=== PATIENT | female | born 1950 | race Caucasian/White ===

== ENCOUNTER → 2019-10-18 12:00 | Outpatient (BNVA) | payer MEDICARE, OTHER, SELFPAY | PROVIDERS: Family Provider Nurse Practitioner; PCP Nurse Practitioner; Visit Provider Nurse Practitioner Family | DX: M79.641 Pain in right hand (principal) | CPT/HCPCS: 73130 ==

== ENCOUNTER 2019-12-13 10:53 | Outpatient (CLI) | payer MEDICARE, OTHER, SELFPAY ==
--- NOTE | 2019-12-13 11:06 | CT_ITS ---
WS: [id number] CT CHEST WITHOUT INTRAVENOUS CONTRAST HISTORY: POSSIBLE THYMOMA, mediastinal MASS TECHNIQUE: Contiguous 5 mm axial imaging performed on the thorax. Coronal and sagittal reformats are submitted. All CT scans at [facility] use at least one of these dose optimization techniq ues: automated exposure control; mA and/or kV adjustment per patient size (includes targeted exams wh ere dose is matched to clinical indication); or iterative reconstruction. CONTRAST: None DLP: 907.85 mGycm COMPARISON: 03/02/2010 Lungs and central airway: Mild pulmonary hyperexpansion. No suspicious masses or nodules. Long-term s tability 6 mm linear scar at the LEFT lung base. Additional linear atelectasis or scar at the lingula . No new mass or nodule. Pleura: Normal. No pleural effusion. Heart and pericardium: Normal size heart. No pericardial effusion. Mediastinum and elvira: Ovoid 12 mm soft tissue mass in the anterior mediastinal fat measures 12 mm. Th is was also present on the prior study from 2009 without increase in size. No additional mediastinal masses. No evidence for thymoma. No adenopathy. Vessels: Mild atherosclerosis aorta. Normal size pulmonary artery. Chest wall and lower neck: Bilateral breast masses and nodules. Several of these nodules were present on the prior study from 2009. No recent mammogram has been performed at [facility] [place]. Upper abdomen: Atherosclerosis aorta. No hilar mass. Osseous structures: Mild increase in thoracic kyphosis. Dorsal column stimulator in the midthoracic r egion. CT/CT chest wo con [id number] IMPRESSION: 1. Long-term stability of a 12 mm lymph node in the anterior mediastinal fat. 2. No fibroma. 3. Bilateral breast masses and nodules. No prior recent mammograms are availab le for review. Recommend diagnostic mammography for further evaluation if this has not been performed elsewhere. 4. Mild emphysema.
== END 2019-12-13 10:54 | disposition home or self-care (01) ==
LOC: RADWPI 11:02
PROVIDERS: Family Provider Family Medicine; PCP Family Medicine; Visit Provider Family Medicine
DX: J98.59 Other diseases of mediastinum, not elsewhere classified (principal); N63.20 Unspecified lump in the left breast, unspecified quadrant; N63.10 Unspecified lump in the right breast, unspecified quadrant; J43.9 Emphysema, unspecified
CPT/HCPCS: 71250

== ENCOUNTER → 2020-01-13 09:54 | Outpatient (BNVA) | payer MEDICARE, OTHER, SELFPAY | PROVIDERS: Family Provider Family Medicine; PCP Family Medicine; Visit Provider Licensed Practical Nurse | DX: Z98.1 Arthrodesis status (principal) | CPT/HCPCS: 99214 ==

== ENCOUNTER 2020-01-21 09:47 | Outpatient (CLI) | payer MEDICARE, OTHER, SELFPAY ==
--- NOTE | 2020-01-21 10:15 | CT_ITS ---
WS: [id number] CT LUMBAR SPINE TECHNIQUE: Noncontrast CT of the lumbar spine with coronal and sagittal reformatted images. CLINICAL INFORMATION: Low back pain COMPARISON: CT 3 13,019 and MRI 3 30,018 DLP: 1925.[address] scans at [facility] use at least one of these dose optimization techniques: automat ed exposure control; mA and/or kV adjustment per patient size (includes targeted exams where dose is matched to clinical indication); or iterative reconstruction. FINDINGS: Mild lumbar curve convex right. Vacuum disc phenomenon. Disc space narrowing L1-L5. Grade 1 anterolis thesis measuring 8 mm unchanged. Screw fixation L4-5 with interconnecting rods. No hardware loosening . Dorsal laminectomy defects with dorsolateral bony fusion. L1-L2: Mild disc bulging with slight effacement of ventral thecal sac. Narrowing subarticular recess. Mild right greater than left foraminal narrowing. Moderate facet arthropathy. L2-L3: Mild disc bulging and osteophytic ridging. Mild central canal stenosis. Mild left and no signi ficant right foraminal narrowing. Moderate facet arthropathy. L3-L4: Slight anterolisthesis L3 on L4. Left subarticular protrusion impingement on the traversing le ft L4 nerve root. Mild central canal stenosis. Moderate left and mild right foraminal narrowing. Mode rate facet arthropathy. L4-L5: Grade 1 anterolisthesis L4 on L5. Moderate facet arthropathy. Mild right greater than left for aminal narrowing. L5-S1: Disc osteophyte complex with endplate ridging. Tiny central osteophyte. Mild right foraminal n arrowing. Slight narrowing of the left subarticular recess. Mild facet arthropathy. Visualized pelvic bony structures: Normal. Paravertebral soft tissues: Normal. CT/CT lumbar spine wo con* [id number] IMPRESSION: 1. Mild lumbar curve. No acute compression. 2. Pedicle screw fixation L4-5 with dorsal laminectomy defects and dorsal late ral bony fusion unchanged. Stable 8 mm anterolisthesis L4 on L5. 3. Mild central canal stenosis L2-3 due to disc bulging with facet arthropathy and ligamentum flavum flavum hypertrophy. 4. Mild central canal stenosis L3-4 with a left subarticular protrusion and im pingement traversing left L4 nerve root. 5. Multilevel mild to moderate foraminal narrowing worse at left L2-3, left L3 -4, and right L4-5. 6. Moderate facet arthropathy L3-L5. 7. Disc space narrowing at L4-5 has progressed slightly since 2019. Otherwise no significant interval changes.
== END 2020-01-21 09:48 | disposition home or self-care (01) ==
LOC: RADWPI 09:53
PROVIDERS: Family Provider Family Medicine; PCP Family Medicine; Visit Provider Licensed Practical Nurse
DX: Z98.1 Arthrodesis status (principal); M48.061 Spinal stenosis, lumbar region without neurogenic claudication; M47.816 Spondylosis without myelopathy or radiculopathy, lumbar region; M51.26 Other intervertebral disc displacement, lumbar region
CPT/HCPCS: 72131

== ENCOUNTER → 2020-01-25 14:50 | Outpatient (BNVA) | payer MEDICARE, OTHER, SELFPAY | PROVIDERS: Family Provider Family Medicine; PCP Family Medicine; Visit Provider Licensed Practical Nurse | DX: Z98.1 Arthrodesis status (principal); Z98.890 Other specified postprocedural states | CPT/HCPCS: 99214 ==

== ENCOUNTER → 2020-02-04 14:37 | Outpatient (BNVA) | payer MEDICARE, OTHER, SELFPAY | PROVIDERS: Family Provider Family Medicine; PCP Family Medicine Adult Medicine; Visit Provider Specialist | DX: M54.17 Radiculopathy, lumbosacral region (principal); G62.9 Polyneuropathy, unspecified; Z87.891 Personal history of nicotine dependence; Z98.1 Arthrodesis status | CPT/HCPCS: 95886; 95909; 99213 ==

== ENCOUNTER 2020-02-10 10:43 | Outpatient (CLI) | payer MEDICARE, OTHER, SELFPAY ==
[2020-02-10 12:10] LABS: 25 Hydroxy Vitamin D 35 ng/mL (30-100); C Reactive Protein 7.2 mg/L (0.0-4.9); Thyroid Stimulating Hormone 1.84 uIU/mL (0.27-4.20); Vitamin B12 914 pg/mL (232-1245)
[2020-02-10 12:15] LABS: Erythrocyte Sedimentation Rate 14 mm/hr (0-15)
[2020-02-10 13:43] LABS: Folate Level > 20.0 ng/mL (4.8-37.3)
[2020-02-14 11:07] LABS: Methylmalonic Acid 152 nmol/L (87-318)
== END 2020-02-10 10:44 | disposition home or self-care (01) ==
LOC: LAB 10:48
PROVIDERS: PCP Family Medicine Adult Medicine; Visit Provider Licensed Practical Nurse
DX: G62.9 Polyneuropathy, unspecified (principal); R53.83 Other fatigue
CPT/HCPCS: 82306; 82607; 82746; 83921; 84260; 84443; 85651; 86140; 86431; 99213

== ENCOUNTER → 2020-02-17 10:13 | Outpatient (BNVA) | payer MEDICARE, OTHER, SELFPAY | PROVIDERS: PCP Family Medicine Adult Medicine; Visit Provider Licensed Practical Nurse | DX: G62.9 Polyneuropathy, unspecified (principal) | CPT/HCPCS: 99213 ==

== ENCOUNTER 2021-01-25 10:45 | Outpatient (CLI) | payer MEDICARE, OTHER, SELFPAY ==
--- NOTE | 2021-01-25 11:04 | CT_ITS ---
WS: [id number] CT CHEST WITHOUT INTRAVENOUS CONTRAST HISTORY: LUNG NODULE TECHNIQUE: Contiguous 5 mm axial imaging performed on the thorax. Coronal and sagittal reformats are submitted. All CT scans at [facility] use at least one of these dose optimization techniques: automated exposure control; mA and/or kV adjustment per patient size (includes targeted exams where dose is matched to clinical indication); or iterative reconstruction. CONTRAST: None DLP: 884.54 mGycm COMPARISON: 12/13/2019 Lungs and central airway: Mild pulmonary hyperexpansion. 6 mm ovoid nodule adjacent to the aortic arc h on the LEFT is stable since 2009. Slight change in configuration but no increase in size. No additi onal concerning nodules or pneumonia. Pleura: Normal. No pleural effusion. Heart and pericardium: Mild enlargement of the heart. No effusion. Mediastinum and elvira: Long-term stability of the soft tissue nodule measuring 11 mm in the anterior m ediastinum. No new or increasing lymph nodes identified on this unenhanced study. Vessels: Mild ectasia and atherosclerosis aorta. Pulmonary artery size is equal to the aorta. Chest wall and lower neck: Numerous bilateral breast masses are reidentified. Upper abdomen: Very mild thickening of the LEFT adrenal gland. Otherwise negative. Osseous structures: Mild thoracic spondylosis. Lead wires from the dorsal column stimulator are again identified over the mid thoracic region. CT/CT chest wo con [id number] IMPRESSION: 1. Stable 6 mm ovoid nodule LEFT upper lobe adjacent to the aortic arch. No ch heaven since 2009. 2. Stable anterior mediastinal mass measuring 11 mm. Probably a lymph node but also stable since 2009. 3. Numerous bilateral breast nodules have been previously described. No mammog essence at this location for review. 4. Mild atherosclerosis and ectasia thoracic aorta. 5. Mild cardiomegaly.
== END 2021-01-25 10:46 | disposition home or self-care (01) ==
PROVIDERS: PCP Family Medicine Adult Medicine; Visit Provider Internal Medicine
DX: R91.1 Solitary pulmonary nodule (principal); J47.9 Bronchiectasis, uncomplicated; J42 Unspecified chronic bronchitis; J43.9 Emphysema, unspecified; I51.7 Cardiomegaly; I70.0 Atherosclerosis of aorta; I77.819 Aortic ectasia, unspecified site; N63.10 Unspecified lump in the right breast, unspecified quadrant; N63.20 Unspecified lump in the left breast, unspecified quadrant
CPT/HCPCS: 71250

== ENCOUNTER 2021-06-19 09:33 | Outpatient (CLI) | payer MEDICARE, OTHER, SELFPAY ==
--- NOTE | 2021-06-19 09:39 | XR_ITS ---
WS: [id number] CERVICAL SPINE TECHNIQUE: 3 views of the cervical spine CLINICAL INFORMATION: CERVICAL STENOSIS COMPARISON: March 08, 2014 FINDINGS: Straightening of the normal cervical lordosis. Slight anterolisthesis C3 on C4 measuring 3 mm. ACDF C 5-C7. Posterior element fixation C4-T2. Posterior fixation screws at C4,C5,C6, T1 and T2 with interco nnecting rods. Hardware appears intact. Normal dens. XR/XR cervical spine 3V* [id number] IMPRESSION: 1. Postoperative changes ACDF C5-C7 unchanged since 2013. 2. Posterior element fusion with interconnecting rods C4-T2. Hardware appears intact. 3. 3 mm anterolisthesis C3 on C4. 4. Osteopenia.
== END 2021-06-19 09:34 | disposition home or self-care (01) ==
PROVIDERS: PCP Family Medicine Adult Medicine; Visit Provider Nurse Practitioner Family
DX: M48.02 Spinal stenosis, cervical region (principal); M85.88 Other specified disorders of bone density and structure, other site; M43.22 Fusion of spine, cervical region
CPT/HCPCS: 72040

== ENCOUNTER 2021-07-20 13:11 | Outpatient (CLI) | payer MEDICARE, OTHER, SELFPAY ==
--- NOTE | 2021-07-20 13:21 | USCV_ITS ---
Adrianne Graves Age: 70 Gender: F : 1950 Exam Date: 07/20/2021 13:33 Ordering Phys: JAYNE COWAN Technologist: Lashonda Tamez [place] [facility] [place]ication: BREATHING PROBLEMS BP: 125 / 75 HR: 91 Rhythm: Sinus Technical Quality: Adequate MEASUREMENTS (Male / Female) Normal Values 2D ECHO LV Diastolic Diameter PLAX 4.2 cm 4.2 - 5.9 / 3.9 - 5.3 cm LV Systolic Diameter PLAX 2.8 cm LV Chamber Size 4.0 cm IVS Diastolic Thickness 1.0 cm 0.6 - 1.0 / 0.6 - 0.9 cm IVS Systolic Thickness 1.3 cm LVPW Diastolic Thickness 1.1 cm 0.6 - 1.0 / 0.6 - 0.9 cm LVPW Systolic Thickness 1.4 cm RV Chamber Size 2.3 cm LVOT Diameter 2.0 cm LV Ejection Fraction 2D Teich 64.8 % LV Ejection Fraction MOD 2C 47.3 % LV Ejection Fraction 2C AL 49.5 % LA Diameter 4.1 cm LA Width 2.8 cm LA Height 3.9 cm RA Width 3.0 cm RA Height 2.9 cm Aorta at Sinotubular Diameter 3.3 cm M-MODE Aortic Annulus Diameter 2.9 cm LA Ao Ratio MM 1.6 MV E Point Septal Separation 0.4 cm DOPPLER AV Peak Velocity 150.0 cm/s LVOT Peak Velocity 91.0 cm/s AV Area Cont Eq vti 2.1 cm squared AV Area Cont Eq pk 1.9 cm squared MV Area PHT 5.6 cm squared Mitral E to A Ratio 0.8 MV E' Velocity 39.0 cm/s Mitral E to MV E' Ratio 6.8 Mitral E to LV E' Lateral Ratio 5.7 Mitral E to LV E' Septal Ratio 8.5 TR Peak Velocity 284.8 cm/s TR Peak Gradient 32.4 mmHg TR Mean Velocity 210.4 cm/s TR Mean Gradient 20.1 mmHg TR Velocity Time Integral 84.4 cm Right Atrial Pressure 3.0 mmHg Pulmonary Artery Systolic Pressu 35.4 mmHg PV Peak Velocity 70.0 cm/s RV Acceleration Time 0.1 s RV Ejection Time 0.3 s RV AcT/ET 0.5 FINDINGS Left Ventricle Normal left ventricular size, systolic function and wall thickness, with no regional wall motion abnormalities. Left ventricular ejection fraction is estimated at 60 %. Normal diastolic function. Right Ventricle Normal right ventricular size and systolic function. Right ventricular systolic pressure 41 mmHg. Right Atrium Normal right atrial size. Left Atrium Mildly increased left atrial size. Mitral Valve Mildly thickened mitral valve. No mitral valve stenosis. Trace mitral valve regurgitation. Aortic Valve Structurally normal trileaflet aortic valve. No aortic valve stenosis. No aortic valve regurgitation. Tricuspid Valve Structurally normal tricuspid valve. No tricuspid valve stenosis. Mild to moderate tricuspid valve regurgitation. Pulmonic Valve Structurally normal pulmonic valve. No pulmonary valve stenosis. Mild pulmonary valve regurgitation. Pericardium No pericardial effusion. Aorta Normal size aortic root and proximal ascending aorta. CONCLUSIONS 1. Normal left ventricular size, systolic function and wall thickness, with no regional wall motion abnormalities. Left ventricular ejection fraction is estimated at 60 %. Normal diastolic function. 2. Mild to moderate tricuspid valve regurgitation. 3. Pulmonary artery pressure estimated at 41 mm Hg. 4. Mildly increased left atrial size. 5. No prior similar studies to compare. Laly Valiente MD (Electronically Signed) Final Date: 22 July 2021 18:29 S
--- NOTE | 2021-07-20 13:21 | CT_ITS ---
WS: [id number] CT CHEST WITHOUT INTRAVENOUS CONTRAST HISTORY: MULTIPLE LUNG NODULES/DYSPNEA/EMPHYSEMA/COPD TECHNIQUE: Contiguous 5 mm axial imaging performed on the thorax. Coronal and sagittal reformats are submitted. All CT scans at [facility] use at least one of these dose optimization techniques: automated exposure control; mA and/or kV adjustment per patient size (includes targeted exams where dose is matched to clinical indication); or iterative reconstruction. CONTRAST: None DLP: 807.91 mGy.cm COMPARISON: 01/25/2021, 03/02/2010, 12/13/2019 Lungs and central airway: Mild pulmonary hyperexpansion. 6 mm well-circumscribed nodule in the medial LEFT upper lobe is unchanged. No new nodules are identified. No pneumonia. Pleura: Normal. No pleural effusion. Heart and pericardium: Mild enlargement of all 4 chambers. No pericardial effusion. Mediastinum and elvira: There are several mediastinal and hilar lymph nodes which have been previously described and stable since at least 12/13/2019. No new or enlarging nodes. Vessels: Mild atherosclerosis and ectasia thoracic aorta. Pulmonary artery size is equal to the aorta . Chest wall and lower neck: Multiple bilateral breast nodules. These nodules have been present on prio r studies. Some of these masses are larger in size. The largest in the RIGHT breast measures 3.4 x 2. 3 cm. Due to multiplicity and only slight increase in size is probably benign but should be further e valuated by mammography. Upper abdomen: Suprarenal aortic calcifications. No splenomegaly. The visualized liver is negative wi thout contrast. No adrenal mass. Osseous structures: Thoracolumbar scoliosis. Mild degenerative spondylitic changes throughout the tho racic spine. Cervical and upper thoracic hardware. CT/CT chest wo con [id number] IMPRESSION: 1. Stable 6 mm well-circumscribed nodule in the medial LEFT upper lobe since a t least 12/13/2019. This nodule was also present in 2009 with slight increase in size. 2. No new mass or pulmonary nodule. 3. Multiple bilateral breast masses and nodules. Some of these have increased in size since 01/25/2021. No prior mammogram for comparison. Recommend diagnostic mammography if it is not being obtained elsewhere.
== END 2021-07-20 13:12 | disposition home or self-care (01) ==
PROVIDERS: PCP Family Medicine Adult Medicine; Visit Provider Nurse Practitioner Family
DX: R91.8 Other nonspecific abnormal finding of lung field (principal); R06.00 Dyspnea, unspecified; I07.1 Rheumatic tricuspid insufficiency; J44.9 Chronic obstructive pulmonary disease, unspecified
CPT/HCPCS: 71250; 93306

== ENCOUNTER 2021-11-15 12:41 | Emergency (ER) | payer OTHER, SELFPAY ==
[2021-11-15 13:04] VITALS: BP 142/80; PULSE 97; RESP 16; TEMP 36.3; O2SAT 96; BMI 34.9
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
[2021-11-15 14:14] VITALS: BP 142/80; PULSE 96; RESP 16; O2SAT 98
== END 2021-11-15 14:34 | disposition home or self-care (01) ==
PROVIDERS: Emergency Provider Physician Assistant; PCP Family Medicine Adult Medicine
DX: Z04.1 Encounter for examination and observation following transport accident (principal); G89.29 Other chronic pain; M54.9 Dorsalgia, unspecified; J44.9 Chronic obstructive pulmonary disease, unspecified; Z87.891 Personal history of nicotine dependence; V89.2XXA Person injured in unspecified motor-vehicle accident, traffic, initial encounter
CPT/HCPCS: 72040; 72072; 72100; 99283

== ENCOUNTER 2022-05-29 11:39 | Outpatient (CLI) | payer MEDICARE, OTHER, SELFPAY ==
--- NOTE | 2022-05-29 12:04 | XR_ITS ---
WS: [id number] XR cervical spine 3V* [id number] REASON FOR EXAM: CERVICAL RADICULOPATHY/CERVICAL STENOSIS OF SPINE FINDINGS: Posterior decompression with posterior pedicle screws and interconnecting rods extending from C4 to T 2. Anterior plate and screw fixation C5-C7. C5 appears fused to C6. C6 appears fused to C7. 3.5 mm of anterolisthesis of C3 on C4 which is unchanged compared to 11/15/2021. Surgical appliances remain in proper position and alignment and unchanged compared to 11/15/2021. XR/XR cervical spine 3V* [id number] IMPRESSION: Stable postoperative cervical spine as above.
== END 2022-05-29 11:40 | disposition home or self-care (01) ==
PROVIDERS: PCP Family Medicine Adult Medicine; Visit Provider Surgery
DX: M54.12 Radiculopathy, cervical region (principal); M48.02 Spinal stenosis, cervical region
CPT/HCPCS: 72040

== ENCOUNTER → 2022-08-26 14:48 | Outpatient (BNVA) | payer MEDICARE, OTHER, SELFPAY | PROVIDERS: PCP Family Medicine Adult Medicine; Visit Provider Nurse Practitioner Family | DX: M25.571 Pain in right ankle and joints of right foot (principal) | CPT/HCPCS: 73610 ==

== ENCOUNTER 2023-01-06 20:00 | Outpatient (CLI) | payer MEDICARE, OTHER, SELFPAY | END 2023-01-06 20:01 | disposition home or self-care (01) | LOC: SLEEP 01-07 06:36 | PROVIDERS: PCP Family Medicine Adult Medicine; Visit Provider Specialist | DX: G47.33 Obstructive sleep apnea (adult) (pediatric) (principal) | CPT/HCPCS: 95810 ==

== ENCOUNTER → 2023-01-21 10:34 | Outpatient (BNVA) | payer MEDICARE, OTHER, SELFPAY | PROVIDERS: PCP Family Medicine Adult Medicine; Visit Provider Family Medicine Adult Medicine | DX: F41.9 Anxiety disorder, unspecified (principal); F32.9 Major depressive disorder, single episode, unspecified; E66.9 Obesity, unspecified; J44.9 Chronic obstructive pulmonary disease, unspecified; R60.0 Localized edema | CPT/HCPCS: 80053; 80061; 83036; 84443; 85025 ==

== ENCOUNTER 2024-11-08 13:00 | Outpatient (CLI) | payer MEDICARE, OTHER, SELFPAY ==
--- NOTE | 2024-11-08 13:04 | US_ITS ---
WS: [id number] BILATERAL 3D TOMOSYNTHESIS DIGITAL SCREENING MAMMOGRAPHY WITH CAD CLINICAL INFORMATION: right breast mass HISTORY: Screening mammogram. No current complaints. COMPARISON: [address] 10/18/2024 TECHNIQUE: Bilateral CC and MLO views. FINDINGS: The breasts are composed of heterogeneous fibroglandular density tissue, which can limit the detection of small underlying mass lesions. Lobulated partially obscured ovoid lesions in the RIGHT breast at the 12 o'clock position in the RIGHT breast and inner breast. Some of these have decreased in size compared to 202. Ultrasound is pending. Ovoid nodular densities LEFT breast similar to the prior studies. Prior ultrasound in 2021 demonstrated multiple cysts in the LEFT breast. Vascular calcification. Dystrophic calcifications. ULTRASOUND BREAST RIGHT TECHNIQUE: Ultrasound right breast focused area of concern. CLINICAL INFORMATION: right breast mass FINDINGS: Ultrasound 12 o'clock position and inner quadrant RIGHT breast. Multiple simple and complex cyst are visualized the largest measuring 2.3 x 2.5 cm in the 12 o'clock position 1 cm from the nipple. Additional smaller simple and complex cysts. Hypoechoic lesion at the 12 o'clock position 1 cm from the nipple measuring 1.6 x 1.4 cm most likely a complex cyst. In addition hypoechoic lesion retroareolar RIGHT breast measuring 1.3 x 1.1 cm also likely a complex cyst but technically indeterminant. Recommend 6-month follow-up of these 2 lesions. US/US breast RT limited* [id number] IMPRESSION: DENSITY:The breasts are heterogeneously dense, which may obscure small masses. BI-RADS: 3 - Probably Benign FOLLOW UP: 6 Month Follow-up Recommend 6-month follow-up RIGHT breast ultrasound with attention to the hypoe choic lesions at the 12 o'clock position and retroareolar described above
--- NOTE | 2024-11-08 13:15 | MM_ITS ---
WS: [id number] BILATERAL 3D TOMOSYNTHESIS DIGITAL SCREENING MAMMOGRAPHY WITH CAD CLINICAL INFORMATION: right breast mass HISTORY: Screening mammogram. No current complaints. COMPARISON: [address] 10/18/2024 TECHNIQUE: Bilateral CC and MLO views. FINDINGS: The breasts are composed of heterogeneous fibroglandular density tissue, which can limit the detection of small underlying mass lesions. Lobulated partially obscured ovoid lesions in the RIGHT breast at the 12 o'clock position in the RIGHT breast and inner breast. Some of these have decreased in size compared to 202. Ultrasound is pending. Ovoid nodular densities LEFT breast similar to the prior studies. Prior ultrasound in 2021 demonstrated multiple cysts in the LEFT breast. Vascular calcification. Dystrophic calcifications. ULTRASOUND BREAST RIGHT TECHNIQUE: Ultrasound right breast focused area of concern. CLINICAL INFORMATION: right breast mass FINDINGS: Ultrasound 12 o'clock position and inner quadrant RIGHT breast. Multiple simple and complex cyst are visualized the largest measuring 2.3 x 2.5 cm in the 12 o'clock position 1 cm from the nipple. Additional smaller simple and complex cysts. Hypoechoic lesion at the 12 o'clock position 1 cm from the nipple measuring 1.6 x 1.4 cm most likely a complex cyst. In addition hypoechoic lesion retroareolar RIGHT breast measuring 1.3 x 1.1 cm also likely a complex cyst but technically indeterminant. Recommend 6-month follow-up of these 2 lesions. MM/MM diag tomosynthesis [id number] IMPRESSION: DENSITY:The breasts are heterogeneously dense, which may obscure small masses. BI-RADS: 3 - Probably Benign FOLLOW UP: 6 Month Follow-up Recommend 6-month follow-up RIGHT breast ultrasound with attention to the hypoe choic lesions at the 12 o'clock position and retroareolar described above
== END 2024-11-08 13:01 | disposition home or self-care (01) ==
PROVIDERS: PCP Family Medicine; Visit Provider Family Medicine
DX: N64.4 Mastodynia (principal); R92.323 Mammographic fibroglandular density, bilateral breasts; N64.89 Other specified disorders of breast; R92.1 Mammographic calcification found on diagnostic imaging of breast; N63.20 Unspecified lump in the left breast, unspecified quadrant; N60.11 Diffuse cystic mastopathy of right breast
CPT/HCPCS: 76642; 77062; G0279

== ENCOUNTER → 2025-02-11 10:19 | Outpatient (BNVA) | payer MEDICARE, OTHER, SELFPAY | PROVIDERS: PCP Family Medicine; Visit Provider Family Medicine | DX: Z13.6 Encounter for screening for cardiovascular disorders (principal); B19.20 Unspecified viral hepatitis C without hepatic coma | CPT/HCPCS: 80053; 80061; 80074; 84439; 84443; 85025 ==

== ENCOUNTER 2025-03-10 12:59 | Outpatient (CLI) | payer MEDICARE, OTHER, SELFPAY ==
--- NOTE | 2025-03-10 13:00 | MR_ITS ---
WS: [id number] MRI CERVICAL SPINE NONCONTRAST HISTORY: chronic neck pain COMPARISON: 03/08/2014 Technique: Multiplanar, multisequence noncontrast imaging of the cervical spine. Patient is status post anterior and posterior cervical fusion. Anterior cervical fusion extends from C5-C7 with interbody spacers. Posterior fusion hardware extends from C4 to the upper thoracic spine. Signal within the cervical cord is normal. Visualized posterior fossa is unremarkable. Craniocervical junction, C1 and C2 relationship, odontoid process and soft tissues are normal. C3 anterolisthesis by 2.6 mm is new since 2013. The anterolisthesis and small osteophytes is causing deformity of the cervical cord at the C3-4 level. Hypertrophic osteophytes contacting the posterior thecal sac at the C2-3 level. There is bowing of the anterior cervical cord due to the osteophyte disease. C2-C3: Normal. C3-C4: Anterolisthesis of C3 with mild disc bulging and bilateral disc osteophyte complexes in the foramina. There is slight disc contact on the ventral cervical cord and deformity from the anterolisthesis. Moderate central stenosis with severe bilateral foraminal stenosis. C4-C5: Artifact from swallowing and motion. No central stenosis. At least mild foraminal stenosis with facet arthritis. C5-C6: Limited by artifact. Mild foraminal stenosis. C6-C7: Limited by artifact. No obvious stenosis. C7-T1: Small LEFT foraminal osteophytes. Mild LEFT foraminal stenosis. Paraspinal soft tissue are normal. MR/MR cervical spin wo con* [id number] IMPRESSION: 1. Cervical spine MRI is compromised by artifact from anterior posterior fusio n hardware. 2. New C3 anterolisthesis by 2.6 mm causing deformity of the cervical cord and stenosis. 3. C3-4: Moderate central stenosis with severe bilateral foraminal stenosis du e to multiple factors. There is a central disc protrusion contacting the ventra l thecal sac. 4. Hypertrophic bone formation from the posterior C2 and C3 vertebral bodies e ncroaching upon the posterior thecal sac resulting in mild anterior deformity o f the cord. 5. Mild foraminal stenosis at C4-5, C5-6 and on the LEFT at C7-T1.
== END 2025-03-10 13:00 | disposition home or self-care (01) ==
LOC: RAD 13:01
PROVIDERS: PCP Family Medicine; Visit Provider Family Medicine
DX: M48.02 Spinal stenosis, cervical region (principal); Z98.890 Other specified postprocedural states; M43.12 Spondylolisthesis, cervical region; M50.21 Other cervical disc displacement, high cervical region; M89.38 Hypertrophy of bone, other site; M48.03 Spinal stenosis, cervicothoracic region; M50.31 Other cervical disc degeneration, high cervical region; M25.78 Osteophyte, vertebrae; M47.892 Other spondylosis, cervical region
CPT/HCPCS: 72141

== ENCOUNTER 2025-05-05 11:49 | Outpatient (CLI) | payer MEDICARE, OTHER, SELFPAY ==
--- NOTE | 2025-05-05 11:45 | US_ITS ---
WS: [id number] ULTRASOUND BREAST RIGHT TECHNIQUE: Ultrasound right breast focused area of concern. CLINICAL INFORMATION: R breast mass. 6 month f/u COMPARISON: 11/08/2024 FINDINGS: No significant changes in the cystic and complex cystic lesions compared to previous. The previously described 12 o'clock position hypoechoic lesion 1 cm from the nipple is stable measuring 1.3 x 1.5 cm. Stable hypoechoic retroareolar lesion measuring 1.2 x 1.2 cm. Remainder of the simple and complex cysts are stable. Recommend return to annual screening mammography US/US breast RT complete [id number] IMPRESSION: BI-RADS 2 benign Recommend return to annual screening mammography
== END 2025-05-05 11:50 | disposition home or self-care (01) ==
LOC: RAD 11:50
PROVIDERS: PCP Family Medicine; Visit Provider Family Medicine
DX: N63.41 Unspecified lump in right breast, subareolar (principal); R92.8 Other abnormal and inconclusive findings on diagnostic imaging of breast
CPT/HCPCS: 76641

== ENCOUNTER → 2025-05-16 14:22 | Outpatient (BNVA) | payer MEDICARE, OTHER, SELFPAY | PROVIDERS: PCP Family Medicine; Visit Provider Family Medicine | DX: R07.9 Chest pain, unspecified (principal); D64.9 Anemia, unspecified | CPT/HCPCS: 80053; 82728; 83550; 85025 ==